=== PATIENT | male | born 1960 | race African-American/Black ===

== ENCOUNTER 2020-05-13 08:09 | Emergency (ER) | payer OTHER ==
[2020-05-13] MEDS ORDERED: PROMETHAZINE 25 MG TABLET ONE (08:35)
[2020-05-13 10:02] LABS: Basophils % 0.5 % (0-1.3); Hematocrit 47.3 % (39.6-49.0); Lymphocytes % 16.5 % (15.3-44.8); MPV 9.4 fL (7.6-11.3); RBC Red Blood Cell Count 4.89 M/uL (4.33-5.43)
[2020-05-13] MEDS ORDERED: ONDANSETRON 4 MG/2 ML VIAL ONE (10:05)
[2020-05-13] MEDS ORDERED: NA CHLORIDE 0.9% 1,000 ML ONE (10:05)
[2020-05-13 10:07] LABS: ALT/SGPT 18 U/L (12-78); AST/SGOT 28 U/L (15-37); Albumin 3.7 g/dL (3.4-5.0); Alkaline Phosphatase 62 U/L (45-117); BUN Blood Urea Nitrogen 16 mg/dL (7-18); Bicarbonate 28 mmol/L (21-32); Bilirubin Direct < 0.1 mg/dL (0-0.2); Bilirubin Total 0.3 mg/dL (0.2-1.0); Glucose Level 123 mg/dL (74-106); Lipase 33 U/L (73-393); Potassium 3.6 mmol/L (3.5-5.1); Protein, Total 7.6 g/dL (6.4-8.2); Sodium Level 141 mmol/L (136-145); Troponin (Emerg Dept Use Only) < 0.02 ng/mL (0.0-0.045)
[2020-05-13] MEDS ORDERED: MORPHINE 4 MG/ML SYR ONE (10:11)
--- NOTE | 2020-05-13 10:16 | RAD REPORT ---
EXAM DESCRIPTION: CT - Head Brain Wo Cont - 05/13/2020 9:56 am CLINICAL HISTORY: Headache COMPARISON: None. TECHNIQUE: Computed axial tomography of the head was obtained. IV contrast was not requested. All CT scans are performed using dose optimization technique as appropriate and may include automated exposure control or mA/KV adjustment according to patient size. FINDINGS: An intracranial bleed is not seen . The ventricles are normal in caliber. No extra-axial fluid collection is noted. Cerebellar tonsillar ectopia is present Fluid within the sinuses/ mastoids is not seen. IMPRESSION: No acute intracranial abnormality is seen. If patient's symptoms persist MRI of the bra in would be recommended.
--- NOTE | 2020-05-13 10:22 | RAD REPORT ---
EXAM DESCRIPTION: CT - Abdomen Pelvis Wo Contrast - 05/13/2020 9:56 am CLINICAL HISTORY: Abdominal pain /vomiting COMPARISON: 2010 TECHNIQUE: Computed axial tomography of the abdomen and pelvis was obtained. IV and oral contrast we re not requested. All CT scans are performed using dose optimization technique as appropriate and may include automated exposure control or mA/KV adjustment according to patient size. FINDINGS: The evaluation of solid organs, vessels and bowel is limited secondary to the lack of con trast administration. Gallbladder distention with borderline gallbladder wall thickening The liver, spleen, pancreas, adrenals and kidneys appear grossly normal. The appendix is normal. There is no evidence of diverticulitis. Bilateral hip arthroplasties. Artifact from the prostheses limits evaluation portions of the lower pe lvis. Rectum is mildly distended with stool . Small hiatal hernia IMPRESSION: Gallbladder distention borderline thickened wall may indicate pathology. Ultrasound is r ecommended
--- NOTE | 2020-05-13 11:54 | RAD REPORT ---
EXAM DESCRIPTION: US - Abdomen Exam Limited - 05/13/2020 11:24 am CLINICAL HISTORY: Abdominal pain. FINDINGS: Gallbladder is distended. Gallbladder wall is mildly thickened. A gallstone is not noted. Common bile duct measures 9 millimeters IMPRESSION: Gallbladder distention with mildly thickened gallbladder wall. This may indicate cholecy stitis Dilated common bile duct may be secondary to a nonvisualized stone within the duct or small periampul didier mass. MRCP recommended
--- NOTE | 2020-05-13 12:28 | EDPHYS ---
Physician Documentation [facility] Name: Wayne Parks Sr Age: 60 yrs Sex: Male : 1960 Arrival Date: 05/13/2020 Time: 08:12 Bed 5 Private MD: ED Physician Daniel Love HPI: 05/13 08:15 This 60 yrs old Black Male presents to ER via EMS with complaints of rn nausea/vomiting/weakness. 08:15 The patient presents to the emergency department with nausea, vomiting. Onset: The rn symptoms/episode began/occurred 2 hour(s) ago. Possible causes: unknown. The symptoms are aggravated by nothing. The symptoms are alleviated by nothing. Severity of symptoms: At their worst the symptoms were moderate in the emergency department the symptoms are unchanged. The patient has experienced similar episodes in the past. Reports 2 hours of nausea/vomiting/generalized weakness. + mild headache, + fatigue, reports abd cramping but no pain. No chest pain/sob. Reports went to bed feeling fine. No known sick contacts. Reports thinks this is food poisoning. . Historical: - Allergies: 08:15 Iodine; bp - Home Meds: 08:15 None [Active]; bp - PMHx: 08:15 None; bp - Immunization history:: Adult Immunizations unknown. - Social history:: Smoking status: unknown. - Family history:: not pertinent. - Hospitalizations: : No recent hospitalization is reported. ROS: 08:15 Constitutional: Negative for fever, and weight loss, Eyes: Negative for injury, pain, rn redness, and discharge, Neck: Negative for injury, pain, and swelling, Cardiovascular: Negative for chest pain, palpitations, and edema, Respiratory: Negative for shortness of breath, cough, wheezing, and pleuritic chest pain, Abdomen/GI: Negative for constipation Back: Negative for injury and pain, : Negative for injury, bleeding, discharge, and swelling, MS/Extremity: Negative for injury and deformity, Skin: Negative for injury, rash, and discoloration, Neuro: Negative for numbness, tingling, and seizure. Exam: 08:15 Constitutional: This is a well developed, well nourished patient who is awake, alert, rn holding emesis bag Head/Face: Normocephalic, atraumatic. ENT: dry MM Cardiovascular: Bradycardic, regular. No pulse deficits. Respiratory: No increased work of breathing, no retractions or nasal flaring. Abdomen/GI: Soft, non-tender MS/ Extremity: Pulses equal, no cyanosis. Neurovascular intact. Full, normal range of motion. Equal circumference. Neuro: Awake and alert, GCS 15, oriented to person, place, time, and situation. Cranial nerves II-XII grossly intact. Motor strength 5/5 in all extremities. Sensory grossly intact. Cerebellar exam normal. Vital Signs: 08:13 BP 173 / 92; Pulse 50; Resp 18; Temp 97.1; Pulse Ox 99% ; bp 08:15 BP 179 / 92; Pulse 45; Resp 18; Pulse Ox 99% ; bp 09:08 BP 112 / 96; Pulse 51; Resp 16; Pulse Ox 100% ; bp 10:00 BP 147 / 81; Pulse 50; Resp 15; Pulse Ox 99% ; rb1 11:00 BP 133 / 77; Pulse 50; Resp 14; Pulse Ox 100% ; bp 11:53 BP 135 / 78; Pulse 50; Resp 16; Pulse Ox 100% ; bp MDM: 08:12 Patient medically screened. rn 08:23 Refusal of service: The patient/guardian displays adequate decision making capability rn and despite a detailed discussion of alternatives, benefits, risks, and consequences refuses: CT Scan, all lab tests. ED course: Pt refuses IV/blood tests/CTs, states "this happens every 3-4 years", refuses IV for testing or medication, requests that he get blankets and oral promethazine, and when he feels better wants to leave. Understands risks of not testing with blood or imaging, and patient had same conversation with nurse. Will give oral promethazine and blankets per patient's wishes and will reeval. . 09:19 Differential diagnosis: gastritis, cholecystitis, pancreatitis, appendicitis, rn diverticulitis, viral gastroenteritis, gastroenteritis, viral syndrome, cyclical vomiting, drug related, food poisoning, migraine. 12:24 Data reviewed: vital signs, nurses notes, lab test result(s), radiologic studies, CT rn scan, ultrasound, and as a result, I will admit patient. Counseling: I had a detailed discussion with the patient and/or guardian regarding: the historical points, exam findings, and any diagnostic results supporting the discharge/admit diagnosis, lab results, radiology results, the need for further work-up and treatment in the hospital. Response to treatment: the patient's symptoms have markedly improved after treatment, and as a result, I will admit patient. Admission orders: after a detailed discussion of the patient's condition and case, the admit orders are written by me. ED course: Pt refuses admission, states nothing I can say or do to convince him to stay, told him possible bile duct obstruction vs choledocholithiasis vs cholecystitis vs pancreatic mass. Understands could need surgery for this problem, but wants to leave anyway. . 05/13 08:14 Order name: Basic Metabolic Panel; Complete Time: 10:10 rn 05/13 08:14 Order name: CBC with Diff; Complete Time: 10:20 rn 05/13 08:14 Order name: Hepatic Function; Complete Time: 10:10 rn 05/13 08:14 Order name: Lipase; Complete Time: 10:10 rn 05/13 08:14 Order name: Troponin (emerg Dept Use Only); Complete Time: 10:10 rn 05/13 09:37 Order name: CT Abd/Pelvis - Without Contrast; Complete Time: 10:34 bp 05/13 09:37 Order name: CT Head Brain wo Cont; Complete Time: 10:20 bp 05/13 10:35 Order name: US Abdomen Limited; Complete Time: 12:22 rn 05/13 08:14 Order name: EKG; Complete Time: 08:15 rn Administered Medications: 08:24 Not Given (Patient Refused): Phenergan 12.5 mg IVP once bp 08:24 Not Given (Patient Refused): NS 0.9% 1000 ml IV at 1000 ml once bp 08:29 Drug: Promethazine 25 mg Route: PO; bp 09:35 Follow up: Response: No adverse reaction bp 09:45 Drug: Zofran (Ondansetron) 4 mg Route: IVP; Site: right antecubital; bp 10:31 Follow up: Response: Nausea is decreased bp 09:45 Drug: NS 0.9% 1000 ml Route: IV; Rate: 1000 ml; Site: right antecubital; bp 10:00 Drug: morphine 4 mg Route: IVP; Site: right antecubital; bp 10:32 Follow up: Response: Pain is decreased bp Disposition: 06/28/20 12:27 Patient has left against medical advice. Impression: Suspected cholecystitis, Suspected choledocholithiasis. - Patients states they are going to Home. - Condition is Stable. - Discharge Instructions: Cholecystitis. Follow up: Manpreet Sher MD; When: Upon discharge from the Emergency Department; Reason: Recheck today's complaints, Re-evaluation by your physician. - Problem is new. - Symptoms have improved. Signatures: Dispatcher [employer] EDIA Kim Plasencia RN RN iw Nieto, Roman, MD MD rn Peltier, Brian, GIL RN bp Corrections: (The following items were deleted from the chart) 08:23 08:14 EKG - Nurse/Tech ordered. rn bp 08:24 08:14 IV Saline Lock ordered. rn bp 08:24 08:14 Labs collected and sent ordered. rn bp 09:42 08:15 Head Brain Wo Cont+CT.RAD.BRZ ordered. EDIA EDMS 09:42 08:15 Abdomen Pelvis Wo Con+CT.RAD.BRZ ordered. EDIA EDMS 12:29 12:27 05/13/2020 12:27 Patients has left against medical advice. Impression: Suspected iw cholecystitis; Suspected choledocholithiasis. Patient states they are going to Home. Condition is Stable. Follow up: Manpreet Sher; When: Upon discharge from the Emergency Department; Reason: Recheck today's complaints, Re-evaluation by your physician. Problem is new. Symptoms have improved. rn
--- NOTE | 2020-05-13 12:28 | ER ---
Nurse's Notes [facility] Name: Wayne Parks Sr Age: 60 yrs Sex: Male : 1960 Arrival Date: 05/13/2020 Time: 08:12 Bed 5 Private MD: Diagnosis: Suspected cholecystitis;Suspected choledocholithiasis Presentation: 05/13 08:13 Chief complaint: EMS states: 2 HOURS OF NAUSEA/VOMITING. Coronavirus screen: Proceed bp with normal triage. Ebola Screen: No symptoms or risks identified at this time. Initial Sepsis Screen: Does the patient meet any 2 criteria? No. Patient's initial sepsis screen is negative. Does the patient have a suspected source of infection? No. Patient's initial sepsis screen is negative. Risk Assessment: Do you want to hurt yourself or someone else? Patient reports no desire to harm self or others. Note PT REFUSING PIV AND IM MEDICATIONS. Onset of symptoms was May 13, 2020 at 06:00. Care prior to arrival: Glucose check: 111. 08:13 Method Of Arrival: EMS: [facility] bp 08:13 Acuity: ZEESHAN 3 bp Triage Assessment: 08:15 General: Appears distressed, uncomfortable, Behavior is appropriate for age, agitated, bp anxious. Pain: Denies pain. EENT: No deficits noted. Neuro: No deficits noted. Cardiovascular: No deficits noted. Respiratory: No deficits noted. GI: Reports nausea, vomiting. : No signs and/or symptoms were reported regarding the genitourinary system. Derm: No deficits noted. Musculoskeletal: No deficits noted. Historical: - Allergies: 08:15 Iodine; bp - Home Meds: 08:15 None [Active]; bp - PMHx: 08:15 None; bp - Immunization history:: Adult Immunizations unknown. - Social history:: Smoking status: unknown. - Family history:: not pertinent. - Hospitalizations: : No recent hospitalization is reported. Screenin:16 Abuse screen: Denies threats or abuse. Denies injuries from another. Nutritional bp screening: No deficits noted. Tuberculosis screening: No symptoms or risk factors identified. Fall Risk None identified. Assessment: 08:16 General: SEE TRIAGE NOTE. bp 08:21 Reassessment: PT REFUSING PIV AND IM MEDICINE. MD INFORMED AND AT B/S. bp 09:09 Reassessment: PT SLEEPING, VS STABLE ON MONITOR. bp 11:01 Reassessment: U/'S PENDING. PT RESTING QUIETLY, VS STABLE. bp 11:19 Reassessment: U/S COMPLETED. bp 11:54 Reassessment: PER MD, U/S SUSPICIOUS FOR ACUTE ALEXANDREA. DISPO PENDING. bp Vital Signs: 08:13 BP 173 / 92; Pulse 50; Resp 18; Temp 97.1; Pulse Ox 99% ; bp 08:15 BP 179 / 92; Pulse 45; Resp 18; Pulse Ox 99% ; bp 09:08 BP 112 / 96; Pulse 51; Resp 16; Pulse Ox 100% ; bp 10:00 BP 147 / 81; Pulse 50; Resp 15; Pulse Ox 99% ; rb1 11:00 BP 133 / 77; Pulse 50; Resp 14; Pulse Ox 100% ; bp 11:53 BP 135 / 78; Pulse 50; Resp 16; Pulse Ox 100% ; bp ED Course: 08:12 Patient arrived in ED. rn 08:12 Daniel Love MD is Attending Physician. rn 08:13 Reyes Guzman, GIL is Primary Nurse. bp 08:14 Triage completed. bp 08:15 Arm band placed on. bp 08:16 Patient has correct armband on for positive identification. Bed in low position. Call bp light in reach. Side rails up X2. 09:09 No provider procedures requiring assistance completed. Patient did not have IV access bp during this emergency room visit. 09:15 Inserted saline lock: 20 gauge 24 gauge antecubital area, using aseptic technique. bp Blood collected. 09:56 CT Abd/Pelvis - Without Contrast In Process Unspecified. EDMS 09:56 CT Head Brain wo Cont In Process Unspecified. EDMS 11:24 US Abdomen Limited In Process Unspecified. EDMS 11:39 Ultrasound completed. Patient tolerated well. Notified ED Physician syed. sg3 12:26 Manpreet Sher MD is Referral Physician. rn 12:28 IV discontinued, intact, bleeding controlled, No redness/swelling at site. Pressure iw dressing applied. Administered Medications: 08:24 Not Given (Patient Refused): Phenergan 12.5 mg IVP once bp 08:24 Not Given (Patient Refused): NS 0.9% 1000 ml IV at 1000 ml once bp 08:29 Drug: Promethazine 25 mg Route: PO; bp 09:35 Follow up: Response: No adverse reaction bp 09:45 Drug: Zofran (Ondansetron) 4 mg Route: IVP; Site: right antecubital; bp 10:31 Follow up: Response: Nausea is decreased bp 09:45 Drug: NS 0.9% 1000 ml Route: IV; Rate: 1000 ml; Site: right antecubital; bp 10:00 Drug: morphine 4 mg Route: IVP; Site: right antecubital; bp 10:32 Follow up: Response: Pain is decreased bp Outcome: 12:28 AMA AMA form signed iw 12: Condition: improved 12:28 Discharge instructions given to patient, Instructed on the need for admit. 12:29 Patient left the ED. iw Signatures: Dispatcher [employer] Kim Valente RN RN iw Daniel Love MD MD rn Barber, Rebecca, RN RN [facility] Reyes Guzman RN RN Sienna Lyles 3
[2020-05-13 12:35] VITALS: TEMP 97.1
[2020-05-13 12:44] VITALS: O2SAT 100
[2020-05-13 12:45] VITALS: BP 135/78
== END 2020-05-13 12:29 | disposition left against medical advice (07) ==
LOC: ER 08:09
DX: R10.9 Unspecified abdominal pain (principal); R53.1 Weakness; R51 Headache; R53.83 Other fatigue
CPT/HCPCS: 85025; 80048; 36415; 80076; 84484; 83690; 70450; 74176; 76705; 96375; 96374; 99284; J7030; J2405; Q0169

== ENCOUNTER 2020-06-22 11:59 | Emergency (ER) | payer OTHER ==
[2020-06-22] MEDS ORDERED: HYDROCODONE/APAP 5/325 MG TAB ONE (13:18)
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
--- NOTE | 2020-06-22 13:39 | RAD REPORT ---
EXAM DESCRIPTION: Shoulder Right 2 View - 06/22/2020 1:33 pm CLINICAL HISTORY: PAIN, trauma COMPARISON: No comparisons TECHNIQUE: Internal and external rotation views of the right shoulder were obtained. FINDINGS: There is no fracture or dislocation. Minimal spurring along the greater tuberosity presen t. AC joint degenerative changes minimal. Acromial humeral joint space normal. No abnormal calcificat ions. No acute or suspicious findings. IMPRESSION: Mild shoulder joint degenerative change. Acute finding.
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
[2020-06-22 15:00] VITALS: TEMP 98.3
[2020-06-22] MEDS ORDERED: NAPROXEN 250 MG TAB PO ONE (15:00)
[2020-06-22 15:03] VITALS: BP 116/79; O2SAT 100
== END 2020-06-22 14:54 | disposition home or self-care (01) ==
LOC: ER 11:59
DX: S22.42XA Multiple fractures of ribs, left side, initial encounter for closed fracture (principal); M25.512 Pain in left shoulder; Z91.048 Other nonmedicinal substance allergy status
CPT/HCPCS: 71046; 99283